=== PATIENT | female | born 1945 | race Caucasian/White ===

== ENCOUNTER 2016-11-29 12:52 | Emergency (ER) | payer MEDICARE ==
--- NOTE | 2016-11-29 13:36 | ED ---
I, Jalen Garza, scribed for Pb Hinojosa MD on 11/29/16 at 1314 . Progress - Progress Note Progress Note: 71 year-old female with history of Parkinson's presents to the ER with significant other stating that today, she was in the restraunt getting a hamburger, and after having her meal, she tried to stand up and had dizziness. She denies any syncopal episodes or LOC at that time. She wa swith her significant other. He brought her to the ER for evaluation, however the patient erfuses treatment here. She reports that she has no dizziness, headache, or other sypmtoms at this time. She is A&Ox3. The patient's significant other is with her in the ER, and he also agrees that she does not have to be seen, so they will sign out AMA. Patient will follow up with her PCP, Dr. Simran Billings and Dr. Rush, her neurologist in [place]. I instructed the patient and her significant other about the risks of leaving AMA, including syncope and . They understand the risk, but they agree to take the risk and will sign out AMA regardless. The patient did not allow me to exam her or do any testing. Again, she is A&Ox3 and hemodynamically stable. Course/Dx - Diagnoses Provider Diagnoses: Dizziness, Parkinsons disease, Left against medical advice The documentation as recorded by the scribeGreg Billy accurately reflects the service I personally performed and the decisions made by me, Pb Hinojosa MD.
== END 2016-11-29 17:35 | disposition left against medical advice (07) ==
LOC: ED 12:52
DX: R42 Dizziness and giddiness (principal); G20 Parkinson's disease
CPT/HCPCS: 99282